=== PATIENT | male | born 1955 | race Caucasian/White ===

== ENCOUNTER 2019-09-27 08:00 | Inpatient (IN) | payer MEDICAID ==
[2019-09-25 09:52] LABS: CLARITY,URINE CLEAR (Clear); COLOR,URINE STRAW (Yellow); GLUCOSE, URINE NEGATIVE (Neg); KETONES,URINE NEGATIVE (Neg); LEUKOCYTE ESTERASE ,URINE NEGATIVE (Neg); NITRITES, URINE NEGATIVE (Neg); OCCULT BLOOD,URINE NEGATIVE (Neg); PH,URINE 5.5 (4.8-8.0); PROTEIN,URINE NEGATIVE (Neg); UROBILINOGEN,URINE 0.2 E.U/dL (0.2-1.0)
[2019-09-25 09:53] LABS: UA COLLECTION TYPE CLN CATCH MIDSTREAM
[2019-09-25 10:08] LABS: HEMOGLOBIN A1C 5.9 % (4.5-6.2)
[2019-09-25 10:10] LABS: PRE OP PROTIME 10.6 SECONDS (9.0-12.0)
[2019-09-25 10:15] LABS: ALBUMIN 3.8 G/DL (3.4-5.0); ALBUMIN/GLOBULIN RATIO 1.2 (1.1-1.5); ALKALINE PHOSPHATASE 137 IU/L (46-116); BLOOD UREA NITROGEN 14 MG/DL (7-18); BUN/CREATININE RATIO 14.9 (5.4-32.0); CALCIUM 8.8 MG/DL (8.5-10.1); CHLORIDE 102 MMOL/L (99-107); CREATININE 0.94 MG/DL (0.60-1.10); PRE OP ALT 28 U/L (30-65); PRE OP ANION GAP 2 (8-16); PRE OP AST 17 U/L (10-37); PRE OP BILIRUB, TOTAL 0.7 MG/DL (0.0-1.0); PRE OP GLUCOSE 107 MG/DL (70-104); PRE OP POTASSIUM 4.6 MMOL/L (3.4-5.1); PRE OP SODIUM 141 MMOL/L (135-145); TOTAL CARBON DIOXIDE 36.7 MMOL/L (24-32); eGFR 81 ML/MIN
[2019-09-25 10:23] LABS: BASOPHILS # (AUTO) 0.1 X10'3 (0-0.2); EOSINOPHILS # (AUTO) 0.1 X10'3 (0-0.9); EOSINOPHILS % (AUTO) 0.6 % (0-6); MEAN CORPUSCULAR HGB CONC 33.6 g/dL (33.0-36.5); MONOCYTES # (AUTO) 0.7 X10'3 (0-0.9); PRE OP HEMOGLOBIN 15.1 g/dL (14.0-17.9); RED BLOOD COUNT 4.82 X10'6 (4.70-6.10)
[2019-09-25 10:24] LABS: BASOPHILS % (AUTO) 0.2 % (0-1); LYMPHOCYTES # (AUTO) 17.6 X10'3 (1.1-4.8); LYMPHOCYTES % (AUTO) 76.8 % (21-51); MEAN CORPUSCULAR HEMOGLOBIN 31.3 PG (27.0-31.0); MEAN CORPUSCULAR VOLUME 93.3 FL (78-98); MEAN PLATELET VOLUME 9.3 FL (7.4-10.4); MONOCYTES % (AUTO) 3.2 % (2-12); NEUTROPHILS # (AUTO) 4.4 X10'3 (1.8-7.7); NEUTROPHILS % (AUTO) 19.2 % (42-75); PRE OP PLATELET COUNT 129 X10'3 (140-440)
[2019-09-25 11:40] LABS: TOTAL CELLS COUNTED 100
[2019-09-25 11:41] LABS: PLATELET ESTIMATE DECREASED; SMUDGE CELLS 2+
[~2019-09-27] VITALS: Ht 165.1 cm; Wt 82.6 kg
[~2019-09-27 08:00] MED LIST: ALBU18HF2 INH; ATOR20TA66 PO; BUDE10.22 INH; IRBE1TAB33 PO; METF-900 PO; MONT10TA26 PO; TIOT18CA3 INH
[2019-09-28] VITALS (20 sets, daily range): BP systolic 107–147; BP diastolic 51–75
[2019-09-28] MEDS ORDERED: ringers solution, lacted 1,000 ML IV SCH ×2 (05:00→15:09)
[2019-09-28] MEDS ORDERED: famotidine 20mg tablet PO ONE (05:30)
[2019-09-28] MEDS ORDERED: cefazolin/dext.iso 2gm/50ml 50 ML IV ONE (05:30)
[2019-09-28] MEDS ORDERED: albuterol 2.5 MG/3 ML nebule NEB ONE ×2 (05:30→15:55)
[2019-09-28] MEDS ORDERED: BUPIVAcaine 0.5% inj/PF 30 ML ONE ×2 (09:29→15:14)
[2019-09-28] MEDS ORDERED: fentaNYL /PF 50mcg/ml 5ml ampule ONE (10:45)
[2019-09-28] MEDS ORDERED: MIDAZolam 5mg/5ml vial ONE (10:45)
[2019-09-28] MEDS ORDERED: rocuronium 10mg/ml inj IV ONE ×2 (10:49)
[2019-09-28] MEDS ORDERED: propofol inj 20 ML IV ONE (10:50)
[2019-09-28 10:54] LABS: BASOPHILS # (AUTO) 0.1 X10'3 (0-0.2); BASOPHILS % (AUTO) 0.5 % (0-1); EOSINOPHILS # (AUTO) 0.2 X10'3 (0-0.9); EOSINOPHILS % (AUTO) 0.7 % (0-6); MEAN PLATELET VOLUME 9.4 FL (7.4-10.4)
[2019-09-28 10:56] LABS: LYMPHOCYTES # (AUTO) 16.5 X10'3 (1.1-4.8); LYMPHOCYTES % (AUTO) 74.3 % (21-51); MEAN CORPUSCULAR HEMOGLOBIN 31.5 PG (27.0-31.0); MEAN CORPUSCULAR VOLUME 95.5 FL (78-98); MONOCYTES # (AUTO) 0.5 X10'3 (0-0.9); MONOCYTES % (AUTO) 2.2 % (2-12); NEUTROPHILS % (AUTO) 22.3 % (42-75); PRE OP HEMOGLOBIN 14.5 g/dL (14.0-17.9); PRE OP PLATELET COUNT 123 X10'3 (140-440); RED BLOOD COUNT 4.61 X10'6 (4.70-6.10); RED CELL DISTRIBUTION WIDTH 14.1 % (11.5-14.5)
[2019-09-28] MEDS ORDERED: sevoflurane 250ml liquid IH ONE (11:24)
[2019-09-28 11:34] LABS: ANISOCYTOSIS 1+; PLATELET ESTIMATE DECREASED; TOTAL CELLS COUNTED 100
[2019-09-28 11:35] LABS: STOMATOCYTES 2+
[2019-09-28] MEDS ORDERED: ePHEDrine 50MG/ML INJ. ONE (11:45)
[2019-09-28] MEDS ORDERED: morphine /PF 1mg/ml 10ml inj. ONE (13:35)
[2019-09-28] MEDS ORDERED: BUPIVAcaine/PF 2.5mg/ml (0.25%) 10ml vial ONE (13:36)
[2019-09-28] MEDS ORDERED: morphine/PF injection 20 MG, BUPIVAcaine 0.5% inj/PF 250 MG in normal saline 250ml IV s... EPI SCH (15:09)
[2019-09-28] MEDS ORDERED: naloxone 2mg/2ml inj 2 MG in normal saline 500ml IV soln 500 ML IV PRN (15:09)
[2019-09-28] MEDS ORDERED: meperidine/PF 25mg/ml syringe IV PRN (15:10)
[2019-09-28] MEDS ORDERED: ondansetron/PF 4mg/2ml inj IV PRN ×3 (15:10→17:35)
[2019-09-28] MEDS ORDERED: morphine 2 MG/ML inj. syringe IV PRN ×2 (15:10→17:35)
[2019-09-28] MEDS ORDERED: morphine 4 MG/ML inj SYRINge IV PRN ×4 (15:10→17:35)
[2019-09-28] MEDS: potassium Cl 20mEq in D5-NS 1,000 ML IV SCH (15:17)
[2019-09-28] MEDS ORDERED: sugammadex 200mg/2ml injection IV ONE (15:20)
[2019-09-28] MEDS ORDERED: CADD PCA waste documentation MC PRN (15:20)
[2019-09-28] MEDS ORDERED: naloxone 0.4 mg/ml inj IV PRN (15:20)
[2019-09-28] MEDS ORDERED: metoclopramide 5 mg/ml inj IV PRN (15:20)
[2019-09-28] MEDS ORDERED: HYDROcodone/acetaminophen 10/325mg tab PO PRN ×2 (15:20)
--- NOTE | 2019-09-28 15:52 | NUR ---
Received from OR via BED, accompanied by Anesthesiologist DR CROFT and report given by Anesthesiologist. PT DROWSY, DENIES PAIN, RIGHT CHEST W/GAUZE DRSG CDI, CT X 2 TO ATRIUM TO SUCTION 20MMHG, LARGE AIR LEAK NOTED, SMALL AMT OF S/S DRAINAGE NOTED IN TUBING, DESAI CATHETER TO GRAVITY DRAINAGE W/YELLOW URINE IN TUBING, EPIDUAL TO MID BACK INTACT. Addendum: 09/28/19 at 1656 by Cat Michel RN Amended: Links added.
[2019-09-28] MEDS ORDERED: ceFAZolin inj. 1,000 MG in dextrose 5%-water 50ml 50 ML IV SCH (16:00)
[2019-09-28 16:11] LABS: ABG BASE EXCESS 0.6 mmol/L (-2.0-3.0); ABG HCO3 30.1 mmol/L (22.0-26.0); ABG OXYGEN SATURATION 97.9 % (95-98); ABG PCO2 (T) 72.6 mmHg (35.0-45.0); ABG PH (T) 7.236 (7.350-7.450); ABG PO2 (T) 126.6 mmHg (83-108); FCOHb 2.4 % (0.5-1.5); FLOW 5 L/min; FMetHb 0.2 % (0.3-1.12); FO2Hb 95.4 % (94-100); TOTAL HEMOGLOBIN 14.1 G/dl (14.0-17.9)
[2019-09-28] MEDS: morphine/PF injection 8 MG, BUPIVAcaine 0.5% inj/PF 100 MG in normal saline 100ml IV so... EPI SCH (16:30)
[2019-09-28] MEDS: meperidine/PF 25mg/ml syringe IV PRN ×2 (16:31→17:20)
[2019-09-28] MEDS ORDERED: ALBUTEROL INHALER 1 PUFF/90 MCG INHALER IH PRN (16:55)
--- NOTE | 2019-09-28 17:21 | NUR ---
Patient in room PAS IN 900. I have received report from Cat recovery analyst room nurse and had the opportunity to ask questions and assume patient care.
[2019-09-28] MEDS: normal saline 1000ml 1,000 ML IV SCH (17:31)
--- NOTE | 2019-09-28 17:32 | NUR ---
Report called to receiving nurse. Transferred via BED, ON NON-REBREATHER, CM, 1 BAG OF PERSONAL Belongings SENT W/PT TO ROOM 2042, RECEIVING RN AT BEDSIDE TO RECEIVE PT, RT PRESENT TO PLACE PT BACK ON BIPAP. Special Issues communicated to receiving nurse. YES. Addendum: 09/28/19 at 1743 by Cat Michel RN Amended: Links added.
[2019-09-28] MEDS ORDERED: potassium Cl 20 mEq SR tablet PO PRN ×2 (17:35)
[2019-09-28] MEDS ORDERED: potassium Cl 20mEq/100mL bag 100 ML IV PRN ×2 (17:35)
[2019-09-28] MEDS ORDERED: acetaminophen 325mg tablet PO PRN ×2 (17:35)
[2019-09-28] MEDS ORDERED: LIDOcaine 2% 10ml TOPICAL JELLY (Urojet) TP ONE (17:35)
[2019-09-28] MEDS ORDERED: potassium CL 10mEq/100ml bag 100 ML IV PRN ×2 (17:35)
--- NOTE | 2019-09-28 18:30 | NUR ---
Problems reprioritized. Patient report given, questions answered & plan of care reviewed with Genaro coppola.
[2019-09-28 19:01] LABS: ABG BASE EXCESS 1.4 mmol/L (-2.0-3.0); ABG OXYGEN SATURATION 97.8 % (95-98); ABG PCO2 (T) 75.7 mmHg (35.0-45.0); ABG PH (T) 7.234 (7.350-7.450); ABG PO2 (T) 123.7 mmHg (83-108); FCOHb 1.6 % (0.5-1.5); FMetHb 0.4 % (0.3-1.12); FO2Hb 95.8 % (94-100); PATIENT TEMPERATURE 37.8; TOTAL HEMOGLOBIN 14.5 G/dl (14.0-17.9)
--- NOTE | 2019-09-28 19:10 | NUR ---
NOTIFIED OF ABG , ORDERS RECEIVED
[2019-09-28] MEDS: docusate sod 100mg capsule PO SCH (20:00)
[2019-09-28] MEDS: ipratropium 0.5 MG/2.5ML nebule IH SCH (20:05)
[2019-09-28] MEDS: budesonide 0.5mg/2ml UD nebule IH SCH (20:05)
[2019-09-28] MEDS: albuterol 2.5 MG/3 ML nebule NEB SCH (20:05)
[2019-09-28 20:06] LABS: ABG BASE EXCESS 0.3 mmol/L (-2.0-3.0); ABG HCO3 28.2 mmol/L (22.0-26.0); ABG OXYGEN SATURATION 88.9 % (95-98); ABG PCO2 (T) 61.4 mmHg (35.0-45.0); ABG PH (T) 7.283 (7.350-7.450); ABG PO2 (T) 58.7 mmHg (83-108); FCOHb 1.8 % (0.5-1.5); FMetHb 0.2 % (0.3-1.12); FO2Hb 87.1 % (94-100); PATIENT TEMPERATURE 37.5; RESPIRATORY RATE 16 b/min; TOTAL HEMOGLOBIN 14.2 G/dl (14.0-17.9)
[2019-09-28] MEDS: sennosides/docusate sodium tablet PO SCH (21:00)
[2019-09-28] MEDS: gabapentin 300mg capsule PO SCH (21:14)
--- NOTE | 2019-09-28 21:15 | NUR ---
ABLE TO SWALLOW MEDS WITHOUT DIFFICULTY , BIPAP AT 15/15 RESPIRATION TO 16 AND 25% FIO2 , PATIENT AWAKE ALERT AND ORIENTED , DENIES PAIN AT THIS TIME , DURAMORPH SITE STABLE , MAINTAINING SATS OF 90-91
[2019-09-29] VITALS (24 sets, daily range): BP systolic 86–132; BP diastolic 54–77
[2019-09-29] MEDS ORDERED: ceFAZolin 1GM/D5W- ADD-VANTAGE 50 ML IV SCH (00:07)
[2019-09-29] MEDS ORDERED: ceFAZolin 1GM/D5W- ADD-VANTAGE 50 ML IV ONE (00:10)
[2019-09-29 03:08] LABS: EOSINOPHILS % (AUTO) 0 % (0-6)
[2019-09-29 03:10] LABS: BASOPHILS # (AUTO) 0.1 X10'3 (0-0.2); BASOPHILS % (AUTO) 0.5 % (0-1); HEMATOCRIT 40.9 % (42.0-52.0); HEMOGLOBIN 13.4 g/dl (14.0-17.9); LYMPHOCYTES # (AUTO) 17.9 X10'3 (1.1-4.8); LYMPHOCYTES % (AUTO) 61.9 % (21-51); MEAN CORPUSCULAR HEMOGLOBIN 31.4 PG (27.0-31.0); MEAN CORPUSCULAR HGB CONC 32.8 g/dL (33.0-36.5); MEAN CORPUSCULAR VOLUME 95.5 FL (78-98); MEAN PLATELET VOLUME 9.7 FL (7.4-10.4); MONOCYTES % (AUTO) 3.3 % (2-12); NEUTROPHILS # (AUTO) 9.9 X10'3 (1.8-7.7); NEUTROPHILS % (AUTO) 34.3 % (42-75); PLATELET COUNT 124 X10'3 (140-440); RED BLOOD COUNT 4.28 X10'6 (4.70-6.10); RED CELL DISTRIBUTION WIDTH 13.9 % (11.5-14.5)
[2019-09-29] MEDS: albuterol 2.5 MG/3 ML nebule NEB SCH ×4 (03:15→19:55)
[2019-09-29] MEDS: ipratropium 0.5 MG/2.5ML nebule IH SCH ×4 (03:15→19:55)
[2019-09-29 03:18] LABS: ALANINE AMINOTRANSFERASE 21 U/L (12-78); ALBUMIN 3.6 G/DL (3.4-5.0); ALBUMIN/GLOBULIN RATIO 1.2 (1.1-1.5); ALKALINE PHOSPHATASE 124 IU/L (46-116); ANION GAP 4 (8-16); ASPARTATE AMINO TRANSFERASE 23 U/L (10-37); BILIRUBIN,TOTAL 0.7 MG/DL (0.1-1.0); BLOOD UREA NITROGEN 16 MG/DL (7-18); BUN/CREATININE RATIO 14.7 (5.4-32.0); CALCIUM 8.4 MG/DL (8.5-10.1); CHLORIDE 101 MMOL/L (99-107); CREATININE 1.09 MG/DL (0.60-1.10); GLUCOSE 156 MG/DL (70-104); MAGNESIUM 2.3 MG/DL (1.5-2.4); PHOSPHORUS 3.8 MG/DL (2.3-4.5); POTASSIUM 4.7 MMOL/L (3.5-5.1); SODIUM 138 MMOL/L (135-145); TOTAL CARBON DIOXIDE 32.6 MMOL/L (24-32); TOTAL PROTEIN 6.6 G/DL (6.4-8.2); eGFR 69 ML/MIN
[2019-09-29 03:21] LABS: WHITE BLOOD COUNT 28.9 X10'3 (4.5-11.0)
[2019-09-29] MEDS: potassium Cl 20mEq in D5-NS 1,000 ML IV SCH ×2 (03:47→17:16)
[2019-09-29 04:08] LABS: ANISOCYTOSIS 1+; PLATELET ESTIMATE DECREASED; SMUDGE CELLS FEW; STOMATOCYTES FEW; TOTAL CELLS COUNTED 100
[2019-09-29 05:31] LABS: ABG BASE EXCESS 6.5 mmol/L (-2.0-3.0); ABG HCO3 33.7 mmol/L (22.0-26.0); ABG OXYGEN SATURATION 95.2 % (95-98); ABG PH (T) 7.374 (7.350-7.450); ABG PO2 (T) 78.1 mmHg (83-108); FCOHb 1.6 % (0.5-1.5); FMetHb 0.2 % (0.3-1.12); FO2Hb 93.5 % (94-100); RESPIRATORY RATE 16 b/min; TOTAL HEMOGLOBIN 14.4 G/dl (14.0-17.9)
--- NOTE | 2019-09-29 06:30 | NUR ---
Problems reprioritized. Patient report given, questions answered & plan of care reviewed with ART RN.
[2019-09-29] MEDS: morphine/PF injection 8 MG, BUPIVAcaine 0.5% inj/PF 100 MG in normal saline 100ml IV so... EPI SCH ×2 (07:31→23:10)
[2019-09-29] MEDS: montelukast 10mg tablet PO SCH (07:49)
[2019-09-29] MEDS: HYDROchlorothiazide 12.5mg capsule PO SCH (07:50)
[2019-09-29] MEDS: docusate sod 100mg capsule PO SCH ×2 (07:50→20:51)
[2019-09-29] MEDS: losartan 50mg tablet PO SCH (07:50)
[2019-09-29] MEDS: atorvastatin 20mg tablet PO SCH (07:50)
[2019-09-29] MEDS: gabapentin 300mg capsule PO SCH ×2 (07:50→20:51)
[2019-09-29] MEDS: metFORMIN 500mg tablet PO SCH (07:50)
[2019-09-29] MEDS ORDERED: non-formulary drug (Budesonide/Formoterol Fumarate (Symbicort 80-4.5 Mcg Inhaler) 2 PUFFS) INH SCH (08:00)
[2019-09-29] MEDS ORDERED: TIOTROPIUM BROMIDE INH SCH (08:00)
[2019-09-29] MEDS: budesonide 0.5mg/2ml UD nebule IH SCH ×2 (08:28→19:55)
--- NOTE | 2019-09-29 13:48 | NUR ---
Spoke with Dr. Jimenez regarding pt BP. We will start levophed
[2019-09-29] MEDS: NORepinephrine 8mg/ 250ml NS 250 ML IV SCH (13:57)
[2019-09-29] MEDS ORDERED: nicotine 21mg patch - 24 hr TD ONE (19:20)
[2019-09-29] MEDS: sennosides/docusate sodium tablet PO SCH (20:51)
[2019-09-30] VITALS (24 sets, daily range): BP systolic 77–111; BP diastolic 47–65
[2019-09-30 03:16] LABS: EOSINOPHILS # (AUTO) 0.2 X10'3 (0-0.9); HEMOGLOBIN 12.3 g/dl (14.0-17.9); MEAN PLATELET VOLUME 9.1 FL (7.4-10.4); MONOCYTES # (AUTO) 1.1 X10'3 (0-0.9)
[2019-09-30] MEDS: albuterol 2.5 MG/3 ML nebule NEB SCH ×4 (03:18→20:22)
[2019-09-30] MEDS: ipratropium 0.5 MG/2.5ML nebule IH SCH ×4 (03:18→20:22)
[2019-09-30 03:20] LABS: BASOPHILS # (AUTO) 0.1 X10'3 (0-0.2); BASOPHILS % (AUTO) 0.2 % (0-1); EOSINOPHILS % (AUTO) 0.7 % (0-6); HEMATOCRIT 37.8 % (42.0-52.0); LYMPHOCYTES # (AUTO) 18.5 X10'3 (1.1-4.8); LYMPHOCYTES % (AUTO) 68.8 % (21-51); MEAN CORPUSCULAR HEMOGLOBIN 31.1 PG (27.0-31.0); MEAN CORPUSCULAR HGB CONC 32.5 g/dL (33.0-36.5); MEAN CORPUSCULAR VOLUME 95.7 FL (78-98); MONOCYTES % (AUTO) 4.1 % (2-12); NEUTROPHILS % (AUTO) 26.2 % (42-75); PLATELET COUNT 111 X10'3 (140-440); RED BLOOD COUNT 3.95 X10'6 (4.70-6.10); RED CELL DISTRIBUTION WIDTH 14.4 % (11.5-14.5)
[2019-09-30 03:32] LABS: WHITE BLOOD COUNT 26.9 X10'3 (4.5-11.0)
[2019-09-30 03:41] LABS: ALANINE AMINOTRANSFERASE 17 U/L (12-78); ALBUMIN/GLOBULIN RATIO 1.1 (1.1-1.5); ALKALINE PHOSPHATASE 97 IU/L (46-116); ANION GAP 6 (8-16); ASPARTATE AMINO TRANSFERASE 18 U/L (10-37); BILIRUBIN,TOTAL 0.8 MG/DL (0.1-1.0); BLOOD UREA NITROGEN 27 MG/DL (7-18); BUN/CREATININE RATIO 26.2 (5.4-32.0); CALCIUM 7.6 MG/DL (8.5-10.1); CHLORIDE 100 MMOL/L (99-107); CREATININE 1.03 MG/DL (0.60-1.10); GLUCOSE 139 MG/DL (70-104); POTASSIUM 3.9 MMOL/L (3.5-5.1); SODIUM 138 MMOL/L (135-145); TOTAL CARBON DIOXIDE 32.1 MMOL/L (24-32); TOTAL PROTEIN 5.7 G/DL (6.4-8.2); eGFR 73 ML/MIN
[2019-09-30 04:04] LABS: TOTAL CELLS COUNTED 100
[2019-09-30 04:05] LABS: ANISOCYTOSIS 1+; PLATELET ESTIMATE DECREASED; POLYCHROMASIA FEW; SMUDGE CELLS FEW
[2019-09-30 04:08] LABS: MAGNESIUM 2.3 MG/DL (1.5-2.4); PHOSPHORUS 3.3 MG/DL (2.3-4.5)
[2019-09-30] MEDS: potassium Cl 20mEq in D5-NS 1,000 ML IV SCH ×2 (04:41→16:39)
[2019-09-30] MEDS: budesonide 0.5mg/2ml UD nebule IH SCH ×2 (07:21→20:22)
[2019-09-30] MEDS: nicotine 21mg patch - 24 hr TD SCH (07:55)
[2019-09-30] MEDS: montelukast 10mg tablet PO SCH (07:56)
[2019-09-30] MEDS: metFORMIN 500mg tablet PO SCH (07:56)
[2019-09-30] MEDS: docusate sod 100mg capsule PO SCH ×2 (07:56→20:24)
[2019-09-30] MEDS: gabapentin 300mg capsule PO SCH (07:56)
[2019-09-30] MEDS: atorvastatin 20mg tablet PO SCH (07:56)
[2019-09-30] MEDS: losartan 50mg tablet PO SCH (08:00)
[2019-09-30] MEDS: HYDROchlorothiazide 12.5mg capsule PO SCH (08:00)
[2019-09-30] MEDS: morphine/PF injection 8 MG, BUPIVAcaine 0.5% inj/PF 100 MG in normal saline 100ml IV so... EPI SCH (17:27)
[2019-09-30] MEDS: normal saline 1000ml 1,000 ML IV SCH (17:31)
[2019-09-30] MEDS: sennosides/docusate sodium tablet PO SCH (20:23)
[2019-09-30] MEDS: NORepinephrine 8mg/ 250ml NS 250 ML IV SCH (20:24)
[2019-10-01] VITALS (21 sets, daily range): BP systolic 93–137; BP diastolic 50–72
[2019-10-01] MEDS: ipratropium 0.5 MG/2.5ML nebule IH SCH ×3 (02:37→14:48)
[2019-10-01] MEDS: albuterol 2.5 MG/3 ML nebule NEB SCH ×3 (02:37→14:48)
[2019-10-01 02:54] LABS: EOSINOPHILS # (AUTO) 0.2 X10'3 (0-0.9); HEMOGLOBIN 12.2 g/dl (14.0-17.9); MEAN PLATELET VOLUME 9.1 FL (7.4-10.4); PLATELET COUNT 102 X10'3 (140-440)
[2019-10-01 02:58] LABS: BASOPHILS # (AUTO) 0.1 X10'3 (0-0.2); BASOPHILS % (AUTO) 0.6 % (0-1); HEMATOCRIT 37.7 % (42.0-52.0); LYMPHOCYTES # (AUTO) 14.2 X10'3 (1.1-4.8); LYMPHOCYTES % (AUTO) 65.8 % (21-51); MEAN CORPUSCULAR HEMOGLOBIN 31.3 PG (27.0-31.0); MEAN CORPUSCULAR HGB CONC 32.4 g/dL (33.0-36.5); MEAN CORPUSCULAR VOLUME 96.5 FL (78-98); MONOCYTES # (AUTO) 1.2 X10'3 (0-0.9); MONOCYTES % (AUTO) 5.4 % (2-12); NEUTROPHILS # (AUTO) 5.9 X10'3 (1.8-7.7); NEUTROPHILS % (AUTO) 27.2 % (42-75); RED BLOOD COUNT 3.91 X10'6 (4.70-6.10); RED CELL DISTRIBUTION WIDTH 14.5 % (11.5-14.5); WHITE BLOOD COUNT 21.6 X10'3 (4.5-11.0)
[2019-10-01 03:30] LABS: ALANINE AMINOTRANSFERASE 16 U/L (12-78); ALBUMIN 2.7 G/DL (3.4-5.0); ALBUMIN/GLOBULIN RATIO 0.9 (1.1-1.5); ALKALINE PHOSPHATASE 95 IU/L (46-116); ANION GAP 3 (8-16); ASPARTATE AMINO TRANSFERASE 16 U/L (10-37); BILIRUBIN,TOTAL 0.5 MG/DL (0.1-1.0); BLOOD UREA NITROGEN 21 MG/DL (7-18); BUN/CREATININE RATIO 25.9 (5.4-32.0); CALCIUM 7.8 MG/DL (8.5-10.1); CHLORIDE 103 MMOL/L (99-107); CREATININE 0.81 MG/DL (0.60-1.10); GLUCOSE 123 MG/DL (70-104); MAGNESIUM 2.4 MG/DL (1.5-2.4); PHOSPHORUS 2.9 MG/DL (2.3-4.5); POTASSIUM 4.8 MMOL/L (3.5-5.1); SODIUM 137 MMOL/L (135-145); TOTAL CARBON DIOXIDE 31.1 MMOL/L (24-32); TOTAL PROTEIN 5.8 G/DL (6.4-8.2); eGFR > 90 ML/MIN
[2019-10-01] MEDS: potassium Cl 20mEq in D5-NS 1,000 ML IV SCH ×2 (04:58→19:30)
[2019-10-01 05:30] LABS: ANISOCYTOSIS 1+; PLATELET ESTIMATE DECREASED; TOTAL CELLS COUNTED 100
[2019-10-01 05:31] LABS: POLYCHROMASIA FEW; STOMATOCYTES 1+
[2019-10-01] MEDS: metFORMIN 500mg tablet PO SCH (07:35)
[2019-10-01] MEDS: HYDROchlorothiazide 12.5mg capsule PO SCH (07:35)
[2019-10-01] MEDS: montelukast 10mg tablet PO SCH (07:36)
[2019-10-01] MEDS: atorvastatin 20mg tablet PO SCH (07:36)
[2019-10-01] MEDS: docusate sod 100mg capsule PO SCH ×2 (07:36→19:28)
[2019-10-01] MEDS: losartan 50mg tablet PO SCH (07:36)
[2019-10-01] MEDS: magnesium hydroxide 30ml (MOM) UD suspension PO PRN ×3 (07:37→19:28)
[2019-10-01] MEDS: nicotine 21mg patch - 24 hr TD SCH (07:37)
[2019-10-01] MEDS: budesonide 0.5mg/2ml UD nebule IH SCH ×2 (08:03→19:17)
[2019-10-01] MEDS ORDERED: furosemide 40mg/4ml inj IV ONE (09:35)
[2019-10-01] MEDS ORDERED: HYDROmorphone 1 mg/ml syringe IV PRN (10:10)
[2019-10-01] MEDS ORDERED: HYDROcodone/acetaminophen 10/325mg tab PO PRN (10:10)
--- NOTE | 2019-10-01 12:11 | NUR ---
spoke with Dr. Cote and he gave me orders to remove patient's central line and prn norco 10mg PO and dilatid 1 mg IV for pain after epidural is removed.
[2019-10-01] MEDS ORDERED: ipratropium 0.5 MG/2.5ML nebule IH SCH (14:51)
[2019-10-01] MEDS ORDERED: albuterol 2.5 MG/3 ML nebule NEB SCH (14:52)
[2019-10-01] MEDS: morphine/PF injection 8 MG, BUPIVAcaine 0.5% inj/PF 100 MG in normal saline 100ml IV so... EPI SCH ×2 (15:30→17:43)
--- NOTE | 2019-10-01 15:39 | NUR ---
central line was removed intact after extended PIV was placed by PICC RN
--- NOTE | 2019-10-01 16:15 | NUR ---
Ivette OSBORNE removed epidural catheter. It came out intact. No complications.
--- NOTE | 2019-10-01 18:07 | NUR ---
Problems reprioritized. Patient report given, questions answered & plan of care reviewed with Karla [].
[2019-10-01] MEDS: sennosides/docusate sodium tablet PO SCH (19:28)
[2019-10-01] MEDS: HYDROcodone/acetaminophen 10/325mg tab PO PRN (19:28)
--- NOTE | 2019-10-01 20:45 | NUR ---
Report called to receiving nurse Miles RN. . Transferred via bed with all belongings. Special Issues communicated to receiving nurse.
--- NOTE | 2019-10-01 21:00 | NUR ---
Patient in room PCU 3013. I have received report from Karla OSBORNE and had the opportunity to ask questions and assume patient care.
[2019-10-01] MEDS: ipratropium/albuterol 3ml nebule NEB PRN (23:23)
[2019-10-02] MEDS: HYDROcodone/acetaminophen 10/325mg tab PO PRN (00:28)
[2019-10-02 02:00] VITALS: BP 133/61
[2019-10-02] MEDS: ipratropium/albuterol 3ml nebule NEB SCH ×3 (04:01→19:46)
[2019-10-02 06:00] VITALS: BP 120/65
--- NOTE | 2019-10-02 06:30 | NUR ---
Patient in room PCU 3013. I have received report from INDIA CORDOVA and had the opportunity to ask questions and assume patient care.
--- NOTE | 2019-10-02 06:36 | NUR ---
Problems reprioritized. Patient report given, questions answered & plan of care reviewed with Ren RN.
[2019-10-02] MEDS: potassium Cl 20mEq in D5-NS 1,000 ML IV SCH ×2 (06:47→08:54)
[2019-10-02 07:34] LABS: MAGNESIUM 2.3 MG/DL (1.5-2.4); PHOSPHORUS 1.7 MG/DL (2.3-4.5)
[2019-10-02] MEDS: ipratropium/albuterol 3ml nebule NEB PRN (07:55)
[2019-10-02] MEDS: budesonide 0.5mg/2ml UD nebule IH SCH ×2 (07:55→19:46)
[2019-10-02] MEDS: nicotine 21mg patch - 24 hr TD SCH (08:33)
[2019-10-02] MEDS: docusate sod 100mg capsule PO SCH ×2 (08:34→19:22)
[2019-10-02] MEDS: metFORMIN 500mg tablet PO SCH (08:35)
[2019-10-02] MEDS: losartan 50mg tablet PO SCH (08:35)
[2019-10-02] MEDS: atorvastatin 20mg tablet PO SCH (08:36)
[2019-10-02] MEDS: HYDROchlorothiazide 12.5mg capsule PO SCH (08:37)
[2019-10-02] MEDS: montelukast 10mg tablet PO SCH (08:37)
[2019-10-02 11:00] VITALS: BP 128/65
[2019-10-02] MEDS ORDERED: mag hydrox/Alum hydrox/simeth 30ml oral suspension PO PRN (13:25)
[2019-10-02 15:00] VITALS: BP 154/75
[2019-10-02] MEDS ORDERED: LORazepam 0.5 MG tablet PO ONE (15:50)
[2019-10-02 18:00] VITALS: BP 130/56
--- NOTE | 2019-10-02 18:30 | NUR ---
Problems reprioritized. Patient report given, questions answered & plan of care reviewed with INDIA DE LA ROSA.
--- NOTE | 2019-10-02 18:32 | NUR ---
Patient in room PCU 3024. I have received report from Ren-INDIA, and had the opportunity to ask questions and assume patient care.
[2019-10-02] MEDS: furosemide 40mg/4ml inj IV SCH (19:19)
[2019-10-02] MEDS: sennosides/docusate sodium tablet PO SCH (19:22)
--- NOTE | 2019-10-02 22:24 | NUR ---
Patient requested to skip the 2200 vitals. Will check his vitals at 0200 and as need. He is resting comfortably, no shortness of breath or any pain.
[2019-10-03 02:00] VITALS: BP 119/46
[2019-10-03] MEDS: ipratropium/albuterol 3ml nebule NEB SCH ×3 (02:19→15:00)
[2019-10-03 05:47] LABS: MAGNESIUM 2.1 MG/DL (1.5-2.4); PHOSPHORUS 2.5 MG/DL (2.3-4.5)
--- NOTE | 2019-10-03 06:25 | NUR ---
Problems reprioritized. Patient report given Florentin, questions answered & plan of care reviewed with .
--- NOTE | 2019-10-03 06:43 | NUR ---
Patient in room PCU 3024. I have received report from Rylan OSBORNE and had the opportunity to ask questions and assume patient care.
[2019-10-03 07:17] VITALS: BP 136/77
[2019-10-03 08:06] LABS: ALANINE AMINOTRANSFERASE 18 U/L (12-78); ALBUMIN 2.6 G/DL (3.4-5.0); ALBUMIN/GLOBULIN RATIO 0.9 (1.1-1.5); ALKALINE PHOSPHATASE 85 IU/L (46-116); ANION GAP 5 (8-16); ASPARTATE AMINO TRANSFERASE 19 U/L (10-37); BILIRUBIN,TOTAL 0.7 MG/DL (0.1-1.0); BLOOD UREA NITROGEN 10 MG/DL (7-18); BUN/CREATININE RATIO 13.9 (5.4-32.0); CHLORIDE 104 MMOL/L (99-107); CREATININE 0.72 MG/DL (0.60-1.10); GLUCOSE 103 MG/DL (70-104); POTASSIUM 3.6 MMOL/L (3.5-5.1); SODIUM 143 MMOL/L (135-145); TOTAL CARBON DIOXIDE 34.1 MMOL/L (24-32); TOTAL PROTEIN 5.6 G/DL (6.4-8.2); eGFR > 90 ML/MIN
[2019-10-03] MEDS: budesonide 0.5mg/2ml UD nebule IH SCH (08:12)
[2019-10-03] MEDS: docusate sod 100mg capsule PO SCH (08:32)
[2019-10-03] MEDS: furosemide 40mg/4ml inj IV SCH (08:32)
[2019-10-03] MEDS: HYDROchlorothiazide 12.5mg capsule PO SCH (08:32)
[2019-10-03] MEDS: montelukast 10mg tablet PO SCH (08:32)
[2019-10-03] MEDS: losartan 50mg tablet PO SCH (08:32)
[2019-10-03] MEDS: metFORMIN 500mg tablet PO SCH (08:33)
[2019-10-03] MEDS: nicotine 21mg patch - 24 hr TD SCH (08:33)
[2019-10-03] MEDS: atorvastatin 20mg tablet PO SCH (08:33)
[2019-10-03 11:27] VITALS: BP 122/72
--- NOTE | 2019-10-03 17:02 | NUR ---
Patient is stable and ready for discharge per MD orders. All discharge instructions reviewed with patient and all questions answered. New prescription given to patient for home pharmacy. PIV discontinued, cannula intact. Telemetry discontinued, telegraph repeater mechanic notified. Belongings collected and sent with patient. Patient picked up by [facility], wheeled to lobby by staff.
== END 2019-10-03 16:58 | disposition home or self-care (01) | DRG 121 ==
LOC: PAS IN 09-28 08:52 → EDSTATUS 09-28 10:30 → ICU 2S 09-28 17:28 → PCU 3S 10-01 21:05
PROVIDERS: ADMIT Internal Medicine Critical Care Medicine; ATTEND Surgery
PROC: 0BBC4ZX Excision of Right Upper Lung Lobe, Percutaneous Endoscopic Approach, Diagnostic (ICD-10-PCS; 2019-09-28)
PROC: 07B74ZX Excision of Thorax Lymphatic, Percutaneous Endoscopic Approach, Diagnostic (ICD-10-PCS; 2019-09-28)
PROC: 0W9930Z Drainage of Right Pleural Cavity with Drainage Device, Percutaneous Approach (ICD-10-PCS; 2019-09-28)
PROC: 5A09357 Assistance with Respiratory Ventilation, Less than 24 Consecutive Hours, Continuous Positive Airway Pressure (ICD-10-PCS; 2019-09-28)
PROC: 0BJ08ZZ Inspection of Tracheobronchial Tree, Via Natural or Artificial Opening Endoscopic (ICD-10-PCS; principal; 2019-09-28 11:24)
PROC: 5A09357 Assistance with Respiratory Ventilation, Less than 24 Consecutive Hours, Continuous Positive Airway Pressure (ICD-10-PCS; 2019-09-29)
PROC: 5A09357 Assistance with Respiratory Ventilation, Less than 24 Consecutive Hours, Continuous Positive Airway Pressure (ICD-10-PCS; 2019-09-30)
DX: R91.8 Other nonspecific abnormal finding of lung field (principal); J96.00 Acute respiratory failure, unspecified whether with hypoxia or hypercapnia; C91.10 Chronic lymphocytic leukemia of B-cell type not having achieved remission; Z79.51 Long term (current) use of inhaled steroids; Z79.84 Long term (current) use of oral hypoglycemic drugs; Z79.899 Other long term (current) drug therapy
CPT/HCPCS: 36415; 36600; 71045; 71046; 76937; 80053; 81003; 82803; 82948; 83036; 83735; 84100; 85018; 85025; 85610; 85730; 86885; 86900; 86901; 86920; 87081; 94640; 94660; 94668; 94760; 97110; 97116; 97161; 97530; A4215; A4618; A6258; A6449; A7000; A7048; C1758; C9250; C9399; G0378; J0690; J1940; J2175; J2250; J2270; J2405; J2704; J3010; J3480; J3490; J7120; J7626